=== PATIENT | male | born 1970 | race Caucasian/White ===

== ENCOUNTER → 2017-04-25 | Day surgery (SDC) | payer OTHER ==
[~2017-04-25] MED LIST: ACIDOPHILUS1 EAC1 PO; ADVAIR 250-501 EACH INH; CYCLOBENZAPRINE5 MG PO; FENTANYL CITRATE/PF 100MCG/2 ML INJ ONE; FLAGYL500 MG PO; FLOVENT HFA12 G1 INH; HYOSCYAMINE SULFATE 0.5 MG/ML AMP ONE; LEVOTHYROXINE75 MCG PO; LIDOCAINE HCL 2% LOCAL INJ 5 ML SDV VIAL INJ ONE; LINZESS PO; LISINOPRIL10 MG PO; METOCLOPRAMIDE HCL 10 MG/2ML VIAL ONE; MIDAZOLAM HCL 2 MG/2 ML VIAL ONE; NORCO 10-325 T1 EACH PO; OXYCODONE-ACET1 EAC3 PO; PANTOPRAZOLE 40 MG 10ML VIAL ONE; PANTOPRAZOLE SO40 MG PO; PROAIR HFA INH8.5 GM INH; PROBIOTIC PO; PROPOFOL IV EMULSION 10 MG/ML 50 ML VIAL ONE; RELPAX40 MG PO; TIZANIDINE HCL4 MG PO; WELCHOL625 MG PO
[2017-04-25 11:39] LABS: WBC,FECAL (FECAL LACTOFERRIN) NEGATIVE (NEGATIVE)
--- NOTE | 2017-04-25 12:22 | Operative Report ---
DATE OF PROCEDURE: April 25, 2017 REFERRING PHYSICIAN: Dr. Arnaldo Olivia. PROCEDURE PERFORMED: Esophagogastroduodenoscopy with biopsies and colonoscopy with polypectomy and biopsy. INDICATIONS FOR ESOPHAGOGASTRODUODENOSCOPY: Acid reflux. INDICATIONS FOR COLONOSCOPY: Chronic diarrhea. MEDICATION: Patient was done under MAC. Please see anesthesiologist's note. PROCEDURE: With patient in left lateral decubitus position, flexible fiberoptic Olympus gastroscope was introduced into the esophagus under direct visualization without any difficulty. An erosion was noted in the distal esophagus. Tongues of velvety red mucosa were noted to extend proximally from the GE junction and biopsies were obtained to rule out Morejon's. There was somewhat of a focal nodularity noted and friability at squamocolumnar junction and biopsies were obtained. The scope was then advanced with ease into the stomach traversing a small hiatal hernia. Mucosa overlying the antrum and the body revealed some diffuse erythema and mild to moderate edema and biopsies were obtained and sent to stain for H. pylori. The pylorus was of normal contour and shape. Was intubated with ease and the scope was advanced all the way to the 2nd portion of the duodenum. The scope was then withdrawn slowly. Biopsies were obtained from the proximal 2nd portion to rule out sprue. Mucosa overlying the duodenal bulb appeared to be within normal limits. The scope was then withdrawn back into the stomach and retroflexed and the previously described hiatal hernia was also noted in the retroflexed position and mucosa overlying the fundus appeared to be within normal limits. The scope was then straightened out and was subsequently withdrawn. Patient tolerated the procedure well. IMPRESSION: 1. Erosive esophagitis. 2. Rule out Morejon's esophagus. 3. Somewhat nodular and friable squamocolumnar junction biopsied. 4. Small hiatal hernia. 5. Gastritis biopsied. Biopsy sent to stain for H. pylori. 6. Rule out sprue. PLAN: Follow up histology. Increase Protonix to 40 mg 1 p.o. a.c. b.i.d.. PROCEDURE: Patient was then turned around and after adequate lubrication of the anal canal a flexible fiberoptic Olympus colonoscope was inserted into the rectum with ease and advanced all the way to the cecum. Mucosa overlying the cecum appeared to be within normal limits. The ileocecal valve was intubated. Scope was advanced into the terminal ileum. Biopsies were obtained. The scope was then withdrawn back into the colon. It was then withdrawn slowly. Mucosa overlying the cecum, ascending colon and transverse colon appeared to be within normal limits. There was some patchy mild inflammatory changes noted in the left colon. Multiple random biopsies were obtained. One polyp was snared and 1 polyp was hot biopsied from the descending colon. Minimal diverticular disease was noted in the sigmoid colon. Similar inflammatory changes were noted in the rectum and biopsies were obtained and the scope was then retroflexed into the distal rectum and small internal hemorrhoids were noted, none of which was actively bleeding. The scope was then straightened out and it was subsequently withdrawn after securing an adequate stool specimen that was sent for the appropriate stool studies. Patient tolerated the procedure well. IMPRESSION 1. Colitis, mild, patchy left-sided. 2. Descending colon polyps times 2, one snared and one hot biopsied. 3. Diverticulosis, minimal. 4. Proctitis, low-grade. 5. Internal hemorrhoids, none actively bleeding. PLAN: Follow up histology. Follow up stool studies. Will initiate VSL#3 DS one p.o. daily. Bentyl 10 mg 1 p.o. t.i.d.. Check CRP, sed rate and IBD panel. Patient will need a followup colonoscopy in 3 years. Job#: [id number] cc:ARNALDO OLIVIA MD
[2017-04-25 12:44] LABS: C DIFFICILE TOXIN A&B AMP PROB NEGATIVE (NEGATIVE)
== END | disposition home or self-care (01) ==
LOC: OR 07:01
PROVIDERS: ATTEND Internal Medicine Gastroenterology
DX: K21.0 Gastro-esophageal reflux disease with esophagitis (principal); D12.4 Benign neoplasm of descending colon; K29.70 Gastritis, unspecified, without bleeding; K51.50 Left sided colitis without complications; K22.10 Ulcer of esophagus without bleeding; K44.9 Diaphragmatic hernia without obstruction or gangrene; K22.8 Other specified diseases of esophagus; K57.30 Diverticulosis of large intestine without perforation or abscess without bleeding; K62.89 Other specified diseases of anus and rectum; K64.8 Other hemorrhoids; G43.909 Migraine, unspecified, not intractable, without status migrainosus; I10 Essential (primary) hypertension; J45.909 Unspecified asthma, uncomplicated; E03.9 Hypothyroidism, unspecified; Z01.810 Encounter for preprocedural cardiovascular examination; Z68.34 Body mass index [BMI] 34.0-34.9, adult
CPT/HCPCS: 43239; 45380; 45384; 45385; 83630; 83993; 87045; 87177; 87328; 87493; 93005; J1980; J2001; J2250; J2765; 45378

== ENCOUNTER → 2017-12-22 | Outpatient (CLI) | payer OTHER ==
[~2017-12-22] MED LIST changes: -FENTANYL CITRATE/PF 100MCG/2 ML INJ ONE; -HYOSCYAMINE SULFATE 0.5 MG/ML AMP ONE; -LIDOCAINE HCL 2% LOCAL INJ 5 ML SDV VIAL INJ ONE; -METOCLOPRAMIDE HCL 10 MG/2ML VIAL ONE; -MIDAZOLAM HCL 2 MG/2 ML VIAL ONE; -PANTOPRAZOLE 40 MG 10ML VIAL ONE; -PROPOFOL IV EMULSION 10 MG/ML 50 ML VIAL ONE
--- NOTE | 2017-12-23 16:28 | Diagnostic Imaging Report ---
Exam: Left hand 3 views History: Trauma to index finger Comparison: None. Findings: No acute, displaced fracture or dislocation. Joint spaces are well-maintained. Soft tissues are unremarkable. Impression: No acute osseous abnormality. Signed by: Dr. Nicho Wheeler M.D. on 12/23/2017 4:25 PM
== END ==
LOC: RAD 11:10
PROVIDERS: ATTEND Internal Medicine
DX: M79.645 Pain in left finger(s) (principal)

== ENCOUNTER 2018-10-21 19:30 | Emergency (ER) | payer OTHER ==
[~2018-10-21] VITALS: Ht 180.3 cm; Wt 107.5 kg
--- OUTSIDE RECORDS SUMMARY | 2018-10-21 19:34 | XMS REPORT ---
Author Author [facility] Address Unknown Phone Unavailable Care Team Providers Care Kitchen Steward Name Role Phone JEWEL OLIVIA Unavailable Unavailable Problems This patient has no known problems. Allergies, Adverse Reactions, Alerts This patient has no known allergies or adverse reactions. Medications This patient has no known medications. Results Test Description Test Time Test Comments Text Results Atomic Results Result Comments HAND 3+ VIEWS LEFT 2017-12-23 16:23:00 [facility] [address] [address] Patient Name: KALE ALARCON MR #: [id number] : 1970 Age/Sex: 47/M Req #: [id number] Adm Physician: Ordered by: JEWEL OLIVIA MD Report #: [id number] Location: [facility] Room/Bed: Procedure: [id number] DX/HAND 3+ VIEWS LEFT Exam Date: 12/22/17 Exam Time: 1130 REPORT STATUS: Signed Exam: Left hand 3 views History: Trauma to index finger Comparison: None. Findings: No acute, displaced fracture or dislocation. Joint spaces are well-maintained. Soft tissues are unremarkable. Impression: No acute osseous abnormality. Signed by: Dr. Elmo Mendez M.D. on 12/23/2017 4:25 PM Dictated By: ELMO MENDEZ MD [id number] Transcribed By: JEREMIAH on 12/23/17 1137 COPY TO: JEWEL OLIVIA MD
[2018-10-21] MEDS ORDERED: MORPHINE SULFATE 5 MG/ML VIAL IM ONE (20:15)
[2018-10-21] MEDS ORDERED: KETOROLAC TROMETHAMINE 30 MG/ML VIAL IV ONE (20:21)
[2018-10-21] MEDS ORDERED: ONDANSETRON HCL INJ 2MG/ML 2ML 2 MG/ML VIAL IV ONE (20:22)
[2018-10-21] MEDS ORDERED: MORPHINE SULFATE 5 MG/ML VIAL IV ONE (20:30)
[2018-10-21] MEDS ORDERED: MORPHINE SULFATE INJ 4 MG/ML INJ 1ML IV ONE ×2 (20:30→20:45)
[2018-10-21] MEDS ORDERED: MORPHINE SULFATE INJ 4 MG/ML INJ 1ML IM ONE (20:30)
[2018-10-21] MEDS ORDERED: MORPHINE SULFATE INJ 4 MG/ML INJ 1ML IV PRN (20:45)
--- NOTE | 2018-10-21 20:58 | Diagnostic Imaging Report ---
RIGHT HIP AND PELVIS - 3 Image(s) HISTORY: Hip out COMPARISON: None available. FINDINGS: Bones: Some of the osseous structures are partially obscured by stool and overlying bowel gas. No acute displaced fracture. No aggressive osseous lesion. Joints: Minimal degenerative changes of the bilateral hips. Soft tissues: The soft tissues appear unremarkable. IMPRESSION: 1. No acute radiographic abnormality. 2. Minimal bilateral hip osteoarthrosis. Signed by: Dr. Lawrence Saunders D.O., M.M.M. on 10/21/2018 8:55 PM
[2018-10-21] MEDS ORDERED: DIAZEPAM INJ 5 MG/ML 2 ML IV ONE (21:00)
[2018-10-21] MEDS ORDERED: DIAZEPAM 5 MG TAB PO ONE (21:15)
[2018-10-21 21:54] VITALS: BP 105/82
== END 2018-10-21 22:11 | disposition home or self-care (01) ==
LOC: ER 19:30
DX: S76.211A Strain of adductor muscle, fascia and tendon of right thigh, initial encounter (principal); X58.XXXA Exposure to other specified factors, initial encounter; Y92.009 Unspecified place in unspecified non-institutional (private) residence as the place of occurrence of the external cause; I10 Essential (primary) hypertension; E03.9 Hypothyroidism, unspecified; K51.90 Ulcerative colitis, unspecified, without complications
CPT/HCPCS: 73502; 96374; 99283; J1885; J2270; J2405

== ENCOUNTER 2019-01-01 16:56 | Inpatient (IN) | payer OTHER ==
[~2019-01-01] VITALS: Ht 180.3 cm; Wt 108.9 kg
[2019-01-01] MEDS ORDERED: SODIUM CHLORIDE 0.9% 1000ML 1,000 ML IV SCH (17:45)
[2019-01-01 18:13] LABS: BASOPHILS # (AUTO) 0.1 (0.0-0.1); BASOPHILS % 0.4 % (0.0-1.0); EOSINOPHILS # (AUTO) 0.1 (0.0-0.4); EOSINOPHILS % 0.5 % (0.0-6.0); HEMATOCRIT 52.4 % (38.2-49.6); HEMOGLOBIN 17.8 g/dL (14.0-18.0); LYMPHOCYTES # (AUTO) 2.2 (1.0-3.2); LYMPHOCYTES % 15.6 % (18.0-39.1); MEAN CORPUSCULAR HEMOGLOBIN 29.3 pg (28-32); MEAN CORPUSCULAR VOLUME 86.2 fL (81-99); MONOCYTES # (AUTO) 1.3 (0.2-0.8); MONOCYTES % 9.4 % (4.4-11.3); NEUTROPHILS # (AUTO) 10.2 (2.1-6.9); NEUTROPHILS % 73.8 % (38.7-80.0); PLATELET COUNT 219 x10e3/uL (140-360); RED BLOOD COUNT 6.08 x10e6/uL (4.3-5.7); RED CELL DISTRIBUTION WIDTH 13.2 % (11.7-14.4)
[2019-01-01] MEDS ORDERED: DICYCLOMINE HCL 20 MG/2 ML VIAL IM ONE (18:15)
[2019-01-01 18:29] LABS: ALANINE AMINOTRANSFERASE 31 IU/L (0-55); ALBUMIN 4.4 g/dL (3.5-5.0); ALBUMIN/GLOBULIN RATIO 1.2 (0.8-2.0); ALKALINE PHOSPHATASE 52 IU/L (40-150); BLOOD UREA NITROGEN 15 mg/dL (7-26); BUN/CREATININE RATIO 15 (6-25); CALCIUM 10.1 mg/dL (8.4-10.2); CARBON DIOXIDE 20 mmol/L (22-29); CHLORIDE 106 mmol/L (98-107); CREATININE, SERUM 0.97 mg/dL (0.72-1.25); EST GLOMERULAR FILTRATION RATE > 60 ML/MIN (60-); GLUCOSE 114 mg/dL (74-118); SODIUM 139 mmol/L (136-145)
[2019-01-01 19:08] LABS: BILIRUBIN,URINE NEGATIVE (NEGATIVE); CLARITY,URINE SL CLOUDY (CLEAR); COLOR,URINE YELLOW (YELLOW); KETONES,URINE NEGATIVE (NEGATIVE); LEUKOCYTE ESTERASE ,URINE NEGATIVE (NEGATIVE); NITRITE,URINE NEGATIVE (NEGATIVE); PROTEIN,URINE DIPSTICK TRACE (NEGATIVE); URINE UROBILINOGEN 0.2 mg/dL (0.2 - 1)
[2019-01-01 19:18] LABS: AMPHETAMINES SCREEN,URINE NEGATIVE (NEGATIVE); PHENCYCLIDINE SCREEN,URINE NEGATIVE (NEGATIVE)
[2019-01-01 19:19] LABS: BENZODIAZEPINES SCREEN,URINE NEGATIVE (NEGATIVE)
[2019-01-01 19:20] LABS: AMORPHOUS SEDIMENT,URINE FEW (FEW); BACTERIA,URINE FEW /HPF; EPITHELIAL CELLS,URINE FEW /LPF; RBC,URINE 0-5 /HPF (0-5); WBC,URINE (MAN) 0-5 /HPF (0-5)
[2019-01-01] MEDS ORDERED: DIATRIZOATE MEGL/DIATRIZOA SOD 30 ML BTL PO ONE (20:14)
[2019-01-01] MEDS ORDERED: ONDANSETRON HCL INJ 2MG/ML 2ML 2 MG/ML VIAL IV STA (20:50)
[2019-01-01] MEDS: MORPHINE SULFATE INJ 4 MG/ML INJ 1ML IV PRN (21:05)
[2019-01-01] MEDS ORDERED: SODIUM CHLORIDE 0.9% 50ML 50 ML ONE (21:58)
[2019-01-01] MEDS ORDERED: IOPAMIDOL 370 MG/ML 200 ML INFUS..BTL INJ ONE (21:58)
--- NOTE | 2019-01-01 22:10 | Diagnostic Imaging Report ---
EXAMINATION: CT of the abdomen and pelvis with contrast. TECHNIQUE: Spiral CT images of the abdomen and pelvis were performed from the lung bases to the lesser trochanters after the intravenous administration of 100 cc of Isovue 370 and the oral administration of water. Coronal and sagittal reformatted images were obtained. COMPARISON: CT abdomen/Pelvis 06/09/2015. CLINICAL HISTORY:LLQ pain. History of ulcerative colitis. FINDINGS: LOWER THORAX:Mild bilateral lower lobe dependent atelectasis. Calcified granuloma in the right lower lobe and calcified right peribronchial lymph node. HEPATOBILIARY: No focal hepatic lesions. Mild intrahepatic ductal dilatation likely reflects post cholecystectomy reservoir effect. No evidence of CBD dilatation. Calcified hepatic granulomas. GALLBLADDER: Status post cholecystectomy. SPLEEN: No splenomegaly. Calcified granulomas. PANCREAS: No evidence of focal masses or ductal dilatation. ADRENALS: No adrenal nodules. KIDNEYS/URETERS: No hydronephrosis, stones, or solid mass lesions. Simple 3.5 cm right upper pole renal cyst. Subcentimeter hypodensity in the right mid pole cyst, characterize, but likely represents a cyst. PELVIC ORGANS/BLADDER: Bladder and prostate are unremarkable. PERITONEUM/RETROPERITONEUM: No free air or fluid. LYMPH NODES: No evidence of lymphadenopathy. VESSELS: Unremarkable. GI TRACT: Interval resolution of wall thickening involving the transverse and proximal descending colon. The colon is fluid-filled. There are fluid-filled small bowel loops with mild wall thickening involving jejunal loops. Jejunal loops are mildly dilated, measuring up to 3.4 cm. The distal ileal loops are partially decompressed. The colon is not decompressed. The terminal ileum is unremarkable in appearance. No evidence of focal transition point. Status post appendectomy. BONES AND SOFT TISSUE: No acute osseous abnormality. IMPRESSION: Fluid-filled stomach and proximal small bowel loops. Mildly thick-walled and dilated jejunal loops with relative decompression of the ileum. No specific transition point identified. Findings are suggestive of enteritis, which may be infectious or inflammatory, although superimposed partial small bowel obstruction is not possible. Suggest follow-up KUB. Interval resolution of wall thickening involving the colon. Fluid-filled colonic loops, correlate clinically for possible diarrhea. Signed by: Dr. Darin Lazo MD on 01/01/2019 10:07 PM
[2019-01-01] MEDS ORDERED: METHYLPREDNISOLONE SOD SUCC 125 MG/2ML VIAL IV STA (22:58)
[2019-01-02] VITALS (9 sets, daily range): BP systolic 100–117; BP diastolic 57–78
[2019-01-02] MEDS: METRONIDAZOLE 500MG/NS 100ML 100 ML IV SCH ×4 (00:17→18:29)
[2019-01-02] MEDS: SODIUM CHLORIDE 0.9% 1000ML 1,000 ML IV SCH ×4 (00:17→23:25)
--- NOTE | 2019-01-02 00:30 | NUR ---
patient received from ER. Patient is AAOx3, resp even and unlabored. Patient c/o abdominal pain 4/10, pain med given in ER. Oriented to room, assessment done. call light within reach, instruct to call for assistance. bed low/locked. continue to monitor closely
[2019-01-02] MEDS ORDERED: LYRICA50 MG PO (01:37)
[2019-01-02] MEDS: PIPER-TAZ 3.375 GM 50 ML IV SCH ×6 (01:40→23:53)
[2019-01-02] MEDS ORDERED: DICYCLOMINE HCL10 MG PO (01:48)
[2019-01-02] MEDS: MORPHINE SULFATE INJ 4 MG/ML INJ 1ML IV PRN ×4 (01:50→22:30)
[2019-01-02] MEDS: ONDANSETRON HCL INJ 2MG/ML 2ML 2 MG/ML VIAL IV PRN ×4 (01:50→22:30)
--- NOTE | 2019-01-02 05:08 | NUR ---
right FA IV infiltrated, start new IV to left hand 20g. abx infusing
--- NOTE | 2019-01-02 07:09 | NUR ---
PT AWAKE RESP INGRID AND UNLABORED A THIS TIME NO DISTRESS NOTED AT THIS TIME, PT ABLE TO MAKE NEEDS KNOWN, NO C/O PAIN WHEN ASKED,HUY LIGHT IN REACH.
[2019-01-02 07:11] LABS: BASOPHILS % 0.5 % (0.0-1.0); EOSINOPHILS # (AUTO) 0.2 (0.0-0.4); EOSINOPHILS % 2.6 % (0.0-6.0); HEMATOCRIT 46.2 % (38.2-49.6); HEMOGLOBIN 15.5 g/dL (14.0-18.0); LYMPHOCYTES # (AUTO) 1.8 (1.0-3.2); LYMPHOCYTES % 22.1 % (18.0-39.1); MEAN CORPUSCULAR HEMOGLOBIN 29.5 pg (28-32); MEAN CORPUSCULAR HGB CONC 33.5 g/dL (31-35); MONOCYTES # (AUTO) 1.1 (0.2-0.8); MONOCYTES % 12.7 % (4.4-11.3); NEUTROPHILS # (AUTO) 5.2 (2.1-6.9); NEUTROPHILS % 61.7 % (38.7-80.0); PLATELET COUNT 176 x10e3/uL (140-360); RED BLOOD COUNT 5.25 x10e6/uL (4.3-5.7); RED CELL DISTRIBUTION WIDTH 13.4 % (11.7-14.4)
[2019-01-02 07:28] LABS: ALANINE AMINOTRANSFERASE 150 IU/L (0-55); ALBUMIN 3.5 g/dL (3.5-5.0); ALBUMIN/GLOBULIN RATIO 1.2 (0.8-2.0); ALKALINE PHOSPHATASE 53 IU/L (40-150); ANION GAP 9.9 mmol/L (8-16); BLOOD UREA NITROGEN 16 mg/dL (7-26); BUN/CREATININE RATIO 17 (6-25); CALCIUM 8.5 mg/dL (8.4-10.2); CARBON DIOXIDE 25 mmol/L (22-29); CHLORIDE 110 mmol/L (98-107); CREATININE, SERUM 0.94 mg/dL (0.72-1.25); EST GLOMERULAR FILTRATION RATE > 60 ML/MIN (60-); GLUCOSE 112 mg/dL (74-118); POTASSIUM 3.9 mmol/L (3.5-5.1); SODIUM 141 mmol/L (136-145)
[2019-01-02] MEDS: LEVOTHYROXINE SODIUM 75 MCG TAB PO SCH (07:30)
[2019-01-02] MEDS: LISINOPRIL 10 MG TAB PO SCH (09:00)
[2019-01-02] MEDS: PREGABALIN 50 MG CAP PO SCH ×3 (09:00→20:48)
[2019-01-02] MEDS: PANTOPRAZOLE 40 MG 10ML VIAL IV SCH ×2 (09:00→17:06)
[2019-01-02] MEDS: METHYLPREDNISOLONE SOD SUCC 40 MG/ML VIAL 1ML IV SCH ×2 (09:00→20:48)
[2019-01-02] MEDS ORDERED: PROBIOTIC PO (19:06)
--- NOTE | 2019-01-02 19:19 | NUR ---
Report given to oncoming nurse, pt stable
[2019-01-02] MEDS: VISBIOME PO SCH (20:48)
[2019-01-03] VITALS (8 sets, daily range): BP systolic 98–114; BP diastolic 61–90
[2019-01-03] MEDS: METRONIDAZOLE 500MG/NS 100ML 100 ML IV SCH ×5 (00:27→23:20)
[2019-01-03] MEDS: ONDANSETRON HCL INJ 2MG/ML 2ML 2 MG/ML VIAL IV PRN ×3 (04:57→20:10)
[2019-01-03] MEDS: MORPHINE SULFATE INJ 4 MG/ML INJ 1ML IV PRN ×3 (04:57→20:10)
[2019-01-03] MEDS: PIPER-TAZ 3.375 GM 50 ML IV SCH ×3 (05:11→18:17)
--- NOTE | 2019-01-03 07:00 | NUR ---
BEDSIDE SHIFT REPORT RECEIVED FROM THE TANK STAVE ASSEMBLER RN. EDUCATED PT ABOUT FALL PRECAUTIONS. BED IS LOW AND LOCKED. SIDE RAILS X2. CALL LIGHT WITH IN EASY REACH. INFORMED PT TO USE CALL LIGHT FOR ANY NEEDS. PT VERBALIZED UNDERSTANDING. FAMILY AT BEDSIDE. PT DENIES NEEDS AT THIS TIME.
[2019-01-03] MEDS: SODIUM CHLORIDE 0.9% 1000ML 1,000 ML IV SCH ×2 (07:06→16:51)
[2019-01-03] MEDS: LEVOTHYROXINE SODIUM 75 MCG TAB PO SCH (08:30)
[2019-01-03] MEDS: PREGABALIN 50 MG CAP PO SCH ×3 (09:18→20:10)
[2019-01-03] MEDS: PANTOPRAZOLE 40 MG 10ML VIAL IV SCH ×2 (09:23→16:51)
[2019-01-03] MEDS: METHYLPREDNISOLONE SOD SUCC 40 MG/ML VIAL 1ML IV SCH ×2 (09:23→20:10)
[2019-01-03] MEDS: LISINOPRIL 10 MG TAB PO SCH (09:25)
--- NOTE | 2019-01-03 10:25 | Diagnostic Imaging Report ---
Abdomen, 2 views. History: Abdominal pain. Findings: Air is scattered throughout nondilated small and large bowel. Minimal residual contrast noted within the descending colon. There are no air-fluid levels. There is no evidence of free air. There are no masses or abnormal calcifications. The osseous structures are intact. IMPRESSION: Nonobstructive bowel gas pattern. Signed by: Anuj Barbosa on 01/03/2019 10:22 AM
--- NOTE | 2019-01-03 11:39 | Diagnostic Imaging Report ---
Right upper quadrant abdominal ultrasound, 01/03/2019. History: Abdominal pain. Comparison: CT 01/01/2019. Discussion: Transverse and longitudinal images of the right upper quadrant of the abdomen were obtained demonstrating a liver of normal size and echogenicity measuring 16 cm in length. There is no evidence of a focal hepatic mass. The portal vein is patent with hepatopetal flow and is within normal limits measuring 8 mm in diameter. The biliary tree is within normal limits with the common bile duct measuring 3 mm in diameter. The gallbladder is absent. The right kidney is normal in size and echogenicity without evidence of hydronephrosis, stones, or mass and measures 11.8 cm in length. A 3.3 x 3.2 x 4.0 oval anechoic structure is present in the upper pole of the right kidney. The pancreas and aorta were scattered by overlying bowel gas. There is no evidence of free fluid. IMPRESSION: 1. Simple right renal cyst. 2. Status post cholecystectomy. Otherwise unremarkable exam. Signed by: Anuj Barbosa on 01/03/2019 11:35 AM
--- NOTE | 2019-01-03 11:50 | NUR ---
STOOL CULTURE GIVEN TO THE LAB
--- NOTE | 2019-01-03 16:50 | NUR ---
PAGED DR. OLIVIA. NEW ORDER FOR FULL LIQUID DIET.
--- NOTE | 2019-01-03 19:00 | NUR ---
BEDSIDE SHIFT REPORT GIVEN TO THE BELT MAKER RN. PT DENIED FURTHER NEEDS. AT BEDSIDE.
[2019-01-03] MEDS: VISBIOME PO SCH (20:10)
[2019-01-04] VITALS (9 sets, daily range): BP systolic 96–122; BP diastolic 54–81
[2019-01-04] MEDS: PIPER-TAZ 3.375 GM 50 ML IV SCH ×5 (00:20→23:49)
[2019-01-04] MEDS: MORPHINE SULFATE INJ 4 MG/ML INJ 1ML IV PRN (04:16)
[2019-01-04] MEDS: ONDANSETRON HCL INJ 2MG/ML 2ML 2 MG/ML VIAL IV PRN (04:16)
[2019-01-04 05:47] LABS: BASOPHILS % 0.1 % (0.0-1.0); HEMATOCRIT 41.6 % (38.2-49.6); HEMOGLOBIN 13.8 g/dL (14.0-18.0); LYMPHOCYTES # (AUTO) 1.3 (1.0-3.2); MEAN CORPUSCULAR HEMOGLOBIN 29.5 pg (28-32); MEAN CORPUSCULAR HGB CONC 33.2 g/dL (31-35); MEAN CORPUSCULAR VOLUME 88.9 fL (81-99); MONOCYTES # (AUTO) 0.5 (0.2-0.8); MONOCYTES % 5.7 % (4.4-11.3); NEUTROPHILS # (AUTO) 7.2 (2.1-6.9); NEUTROPHILS % 79.9 % (38.7-80.0); PLATELET COUNT 167 x10e3/uL (140-360); RED BLOOD COUNT 4.68 x10e6/uL (4.3-5.7); RED CELL DISTRIBUTION WIDTH 12.9 % (11.7-14.4)
[2019-01-04] MEDS: METRONIDAZOLE 500MG/NS 100ML 100 ML IV SCH ×4 (05:51→23:28)
[2019-01-04] MEDS: LEVOTHYROXINE SODIUM 75 MCG TAB PO SCH (05:52)
[2019-01-04 06:08] LABS: ALANINE AMINOTRANSFERASE 105 IU/L (0-55); ALBUMIN 3.5 g/dL (3.5-5.0); ALBUMIN/GLOBULIN RATIO 1.3 (0.8-2.0); ALKALINE PHOSPHATASE 50 IU/L (40-150); BLOOD UREA NITROGEN 15 mg/dL (7-26); BUN/CREATININE RATIO 17 (6-25); CALCIUM 8.6 mg/dL (8.4-10.2); CARBON DIOXIDE 24 mmol/L (22-29); CHLORIDE 103 mmol/L (98-107); CREATININE, SERUM 0.86 mg/dL (0.72-1.25); EST GLOMERULAR FILTRATION RATE > 60 ML/MIN (60-); GLUCOSE 119 mg/dL (74-118); MAGNESIUM 2.1 MG/DL (1.3-2.1); SODIUM 134 mmol/L (136-145)
--- NOTE | 2019-01-04 07:10 | NUR ---
PT AWAKE RESP EVEN AND UNLABORED A THIS TIME NO DISTRESS NOTED AT THIS TIME, PT ABLE TO MAKE NEEDS KNOWN, NO C/O PAIN WHEN ASKED,CALL LIGHT IN REACH.PT HS AT BEDSIDE.
[2019-01-04] MEDS: PANTOPRAZOLE 40 MG 10ML VIAL IV SCH ×2 (10:00→17:00)
[2019-01-04] MEDS: METHYLPREDNISOLONE SOD SUCC 40 MG/ML VIAL 1ML IV SCH ×2 (10:00→20:56)
[2019-01-04] MEDS: PREGABALIN 50 MG CAP PO SCH ×3 (10:00→20:56)
[2019-01-04] MEDS: LISINOPRIL 10 MG TAB PO SCH (10:01)
[2019-01-04] MEDS: SODIUM CHLORIDE 0.9% 1000ML 1,000 ML IV SCH (10:57)
--- NOTE | 2019-01-04 19:28 | NUR ---
report given to to oncoming nurse pt stable at this time.
[2019-01-04] MEDS: VISBIOME PO SCH (20:56)
[2019-01-05] VITALS (8 sets, daily range): BP systolic 104–122; BP diastolic 63–75
[2019-01-05] MEDS: METRONIDAZOLE 500MG/NS 100ML 100 ML IV SCH ×3 (06:00→18:17)
[2019-01-05] MEDS: LEVOTHYROXINE SODIUM 75 MCG TAB PO SCH (06:04)
[2019-01-05] MEDS: SODIUM CHLORIDE 0.9% 1000ML 1,000 ML IV SCH (06:04)
[2019-01-05] MEDS: PIPER-TAZ 3.375 GM 50 ML IV SCH ×3 (06:04→17:45)
[2019-01-05] MEDS: LISINOPRIL 10 MG TAB PO SCH (08:33)
[2019-01-05] MEDS: PANTOPRAZOLE 40 MG 10ML VIAL IV SCH ×2 (08:33→17:45)
[2019-01-05] MEDS: PREGABALIN 50 MG CAP PO SCH ×3 (08:33→21:00)
[2019-01-05] MEDS: METHYLPREDNISOLONE SOD SUCC 40 MG/ML VIAL 1ML IV SCH ×2 (08:33→21:00)
--- NOTE | 2019-01-05 19:00 | NUR ---
Patient visited in room during nursing rounds. Patient alert and oriented x3. No distress or discomfort noted. Pt ambulatory in room prn. On IVF (NS at 50ml/hr). Pt denies any pain or discomfort. Call banegas within reach. Will monitor closely.
[2019-01-05] MEDS: VISBIOME PO SCH (21:00)
[2019-01-06] MEDS: PIPER-TAZ 3.375 GM 50 ML IV SCH ×2 (00:14→05:35)
[2019-01-06] MEDS: METRONIDAZOLE 500MG/NS 100ML 100 ML IV SCH ×2 (00:40→06:43)
[2019-01-06 05:27] VITALS: BP 97/64
--- NOTE | 2019-01-06 05:33 | NUR ---
Dr. Quiroz came and saw pt in room. MD aware pt feels better. MD plans to put in discharge orders for patient this morning.
[2019-01-06] MEDS: LEVOTHYROXINE SODIUM 75 MCG TAB PO SCH (06:05)
--- NOTE | 2019-01-06 07:00 | NUR ---
RECEIVED AM REPORT AND ROUNDS DONE. PT IS ALERT RESTING IN BED, NO S/S OF DISTRESS. CALL LIGHT WITHIN REACH AND INSTRUCTED PT TO CALL NURSE FOR HELP
[2019-01-06 08:00] VITALS: BP 114/78
[2019-01-06 08:09] VITALS: BP 114/78
--- NOTE | 2019-01-06 19:03 | Discharge Summary ---
DISCHARGE DIAGNOSES: 1. Ulcerative colitis flare up. 2. Abdominal pain. HISTORY OF PRESENT ILLNESS AND HOSPITAL COURSE: See hospital chart for full details. The patient is a gentleman, who presented with history of ulcerative colitis, presented with abdominal pain, where he was noticed on CT scan to have inflammation of the duodenal area, so it was unsure if it was infectious versus inflammatory, so he was placed on IV antibiotics and IV steroids with significant improvement. At the time of discharge, the patient was 100% symptom-free with having no pain. He is able to the eat well and ambulate well with no issues. His GI doctor was unable to see him here at the hospital due to being out of town, so he was discharged home with p.o. Flagyl 500 mg 3 times a day for 10 days as well as prednisone taper over 15 days. He will follow up with me in 1 to 2 weeks as well as Dr. Jordan Flowers in 1 to 2 weeks. Please see hospital chart for full details. MD ASA Guo/LEISA /[id number]
== END 2019-01-06 09:21 | disposition home or self-care (01) | DRG 872 ==
LOC: ER 16:56 → ERHOLD 23:18 → MED/SURG2 01-02 00:24
PROVIDERS: ADMIT Internal Medicine; ATTEND Internal Medicine
DX: A41.9 Sepsis, unspecified organism (principal); K50.80 Crohn's disease of both small and large intestine without complications; I10 Essential (primary) hypertension; Z68.33 Body mass index [BMI] 33.0-33.9, adult; E03.9 Hypothyroidism, unspecified; Z88.1 Allergy status to other antibiotic agents; Z88.5 Allergy status to narcotic agent; K21.9 Gastro-esophageal reflux disease without esophagitis; J45.909 Unspecified asthma, uncomplicated; E66.9 Obesity, unspecified; R94.5 Abnormal results of liver function studies; D64.9 Anemia, unspecified
CPT/HCPCS: 36415; 74019; 74177; 76705; 80053; 80307; 81001; 83735; 83993; 85025; 86140; 87045; 99284; J2270; J2405; J2543; J2920; J2930; J7030; Q9967

== ENCOUNTER → 2022-08-14 | Day surgery (SDC) | payer OTHER ==
[~2022-08-14] MED LIST changes: +COLESTIPOL HCL1 GM PO; +DICYCLOMINE HCL10 MG PO; +FLUCONAZOLE 200 MG/100 ML 100 ML IV STA; +KETOROLAC TROMETHAMINE 30 MG/ML VIAL ONE; +LACTATED RINGER'S 1,000 ML ONE; +LIDOCAINE HCL 2% LOCAL INJ 5 ML SDV VIAL INJ ONE; +LYRICA50 MG PO; +METOCLOPRAMIDE HCL 10 MG/2ML VIAL ONE; +NAPROXEN250 MG PO; +ONDANSETRON HCL INJ 2MG/ML 2ML 2 MG/ML VIAL ONE; +POVIDONE IODINE 0.05% 0.05 % ML PO ONE; +PROPOFOL IV EMULSION 10 MG/ML 20 ML VIAL ONE; +TIZANIDINE HCL4 M1 PO
[2022-08-14 12:30] VITALS: BP 137/98; PULSE 90; RESP 16; O2SAT 98
== END | disposition home or self-care (01) ==
LOC: OR 07:07
PROVIDERS: ATTEND Internal Medicine Gastroenterology
DX: K50.90 Crohn's disease, unspecified, without complications (principal); K29.70 Gastritis, unspecified, without bleeding; K22.70 Barrett's esophagus without dysplasia; K21.9 Gastro-esophageal reflux disease without esophagitis; K44.9 Diaphragmatic hernia without obstruction or gangrene; K22.89 Other specified disease of esophagus; K62.89 Other specified diseases of anus and rectum; K64.8 Other hemorrhoids; I10 Essential (primary) hypertension; G47.33 Obstructive sleep apnea (adult) (pediatric); J45.909 Unspecified asthma, uncomplicated; G89.29 Other chronic pain; M06.9 Rheumatoid arthritis, unspecified; M19.90 Unspecified osteoarthritis, unspecified site; E03.9 Hypothyroidism, unspecified; Z88.6 Allergy status to analgesic agent; Z88.1 Allergy status to other antibiotic agents; Z88.3 Allergy status to other anti-infective agents; Z01.810 Encounter for preprocedural cardiovascular examination; Z79.899 Other long term (current) drug therapy
CPT/HCPCS: 36415; 43239; 45380; 82746; 83630; 83993; 86140; 86256; 86671; 87045; 87177; 87324; 87328; 87449; 93005; C9113; J1450; J1885; J2001; J2405; J2704; J2765; J7121; 43235; 45378